=== PATIENT | female | born 1960 | race Asian ===

== ENCOUNTER 2016-12-14 07:23 | Outpatient (CLI) | payer BC ==
[2016-12-14 08:16] LABS: BASOPHILS % (AUTO) 0.7 % (0.0-2.0); EOSINOPHILS # (AUTO) 0.3 /CMM (0.0-0.7); EOSINOPHILS % (AUTO) 5.2 % (0.0-6.0); HEMATOCRIT 39 % (33-45); HEMOGLOBIN 12.8 g/dL (11.5-14.8); LYMPHOCYTES # (AUTO) 2.6 /CMM (0.8-4.8); LYMPHOCYTES % (AUTO) 48.5 % (20.0-44.0); MEAN CORPUSCULAR HEMOGLOBIN 30 PG (26.0-33.0); MEAN CORPUSCULAR HGB CONC 33 g/dl (31.0-36.0); MEAN CORPUSCULAR VOLUME 89 fL (82-100); MONOCYTES # (AUTO) 0.3 /CMM (0.1-1.30); MONOCYTES % (AUTO) 6.5 % (2.0-12.0); NEUTROPHILS # (AUTO) 2.1 /CMM (1.8-8.9); NEUTROPHILS % (AUTO) 39.1 % (43.0-81.0); PLATELET COUNT (AUTO) 282 /CMM (150-450); RDW COEFFICIENT OF VARIATION 12.7 (11.5-15.0); RED BLOOD CELL COUNT(AUTO) 4.33 MIL/uL (4.0-5.2); WHITE BLOOD COUNT (AUTO) 5.4 K/uL (4.3-11.0)
[2016-12-14 08:31] LABS: ALBUMIN 3.9 g/dL (3.4-5.0); BILIRUBIN,TOTAL 0.4 mg/dL (0.2-1.0); CALCIUM, SERUM 8.5 mg/dL (8.5-10.1); CREATININE 0.8 mg/dL (0.6-1.3); POTASSIUM 4.1 mmol/L (3.5-5.1); TOTAL PROTEIN, SERUM 7.7 g/dL (6.4-8.2)
[2016-12-14 08:40] LABS: FREE T4 (FREE THYROXINE) 0.92 ng/dL (0.76-1.46); THYROID STIMULATING HORMONE 1.66 uIU/mL (0.358-3.74)
== END 2016-12-14 23:59 | disposition home or self-care (01) ==
LOC: LAB 07:23
PROVIDERS: ATTEND Family Medicine
DX: Z00.01 Encounter for general adult medical examination with abnormal findings (principal)
CPT/HCPCS: 36415; 80053-TC; 80061-TC; 84439-TC; 84443-TC; 85025-TC

== ENCOUNTER 2020-01-08 19:39 | Emergency (ER) | payer BC, OTHER ==
[~2020-01-08] VITALS: Ht 152.4 cm; Wt 57.6 kg
[2020-01-08 19:39] VITALS: BP 171/82
== END 2020-01-08 20:25 | disposition home or self-care (01) ==
LOC: ER 19:48
DX: Z11.59 Encounter for screening for other viral diseases (principal); R03.0 Elevated blood-pressure reading, without diagnosis of hypertension
CPT/HCPCS: 99283; U0003

== ENCOUNTER 2020-02-11 15:51 | Emergency (ER) | payer OTHER ==
[~2020-02-11] VITALS: Ht 154.9 cm; Wt 71.2 kg
[2020-02-11 16:00] VITALS: BP 145/65
--- NOTE | 2020-02-11 16:49 | NUR ---
PT SWABBED FOR COVID19. D/C HOME IN STABLE CONDITION.
== END 2020-02-11 16:50 | disposition home or self-care (01) ==
LOC: ER 15:55
DX: Z03.818 Encounter for observation for suspected exposure to other biological agents ruled out (principal)
CPT/HCPCS: 99283; C9803; U0003

== ENCOUNTER 2020-02-19 14:44 | Emergency (ER) | payer OTHER ==
[~2020-02-19] VITALS: Ht 157.5 cm; Wt 57.6 kg
[2020-02-19 14:55] VITALS: BP 156/78
--- NOTE | 2020-02-19 15:20 | NUR ---
COVID SWAB OBTAINED AND SENT TO LAB.
--- NOTE | 2020-02-19 15:26 | NUR ---
Patient discharged to home in stable condition. Written and verbal after care instructions given. Patient verbalizes understanding of instruction.
== END 2020-02-19 15:27 | disposition home or self-care (01) ==
LOC: ER 14:45
DX: Z03.818 Encounter for observation for suspected exposure to other biological agents ruled out (principal)
CPT/HCPCS: 99283; C9803; U0003

== ENCOUNTER 2020-03-03 19:24 | Emergency (ER) | payer OTHER ==
[~2020-03-03] VITALS: Ht 152.4 cm; Wt 56.7 kg
--- NOTE | 2020-03-03 20:00 | NUR ---
COVID SWAB COLLECTED AND SENT TO LAB
== END 2020-03-03 20:01 | disposition home or self-care (01) ==
LOC: ER 19:29
DX: Z03.818 Encounter for observation for suspected exposure to other biological agents ruled out (principal)
CPT/HCPCS: 99283; C9803; U0003

== ENCOUNTER 2020-03-10 19:36 | Emergency (ER) | payer OTHER ==
[~2020-03-10] VITALS: Ht 154.9 cm; Wt 56.7 kg
[2020-03-10 19:42] VITALS: BP 122/65
--- NOTE | 2020-03-10 19:45 | NUR ---
CALLED FOR COVID TEST
--- NOTE | 2020-03-10 20:32 | NUR ---
covid swab done and sent to lab
--- NOTE | 2020-03-10 20:32 | NUR ---
Patient discharged to home in stable condition. Written and verbal after care instructions given. Patient verbalizes understanding of instruction. Pt ambulatory with a steady gait
== END 2020-03-10 20:32 | disposition home or self-care (01) ==
LOC: ER 19:40
DX: Z11.59 Encounter for screening for other viral diseases (principal)
CPT/HCPCS: 99283; C9803; U0003

== ENCOUNTER 2020-03-17 14:43 | Emergency (ER) | payer OTHER ==
[~2020-03-17] VITALS: Ht 154.9 cm; Wt 56.7 kg
[2020-03-17 14:54] VITALS: BP 144/75
--- NOTE | 2020-03-17 15:20 | NUR ---
COVID SWAB OBTAINED AND SENT TO LAB.
--- NOTE | 2020-03-17 15:27 | NUR ---
Patient discharged to home in stable condition. Written and verbal after care instructions given. Patient verbalizes understanding of instruction.
== END 2020-03-17 15:27 | disposition home or self-care (01) ==
LOC: ER 14:47
DX: Z11.59 Encounter for screening for other viral diseases (principal)
CPT/HCPCS: 99283; C9803; U0003

== ENCOUNTER 2020-03-25 15:33 | Emergency (ER) | payer OTHER ==
[~2020-03-25] VITALS: Ht 154.9 cm; Wt 56.7 kg
[2020-03-25 15:33] VITALS: BP 135/69
--- NOTE | 2020-03-25 16:10 | NUR ---
Patient discharged to home in stable condition. Written and verbal after care instructions given. Patient verbalizes understanding of instruction. Pt ambulatory with a steady gait
--- NOTE | 2020-03-25 16:10 | NUR ---
COVID SWAB DONE AND SENT TO LAB
== END 2020-03-25 16:11 | disposition home or self-care (01) ==
LOC: ER 15:35
DX: Z11.59 Encounter for screening for other viral diseases (principal)
CPT/HCPCS: 99283; C9803; U0003

== ENCOUNTER 2020-04-01 15:45 | Emergency (ER) | payer OTHER ==
[~2020-04-01] VITALS: Ht 154.9 cm; Wt 58.5 kg
[2020-04-01 15:59] VITALS: BP 162/83
== END 2020-04-01 16:32 | disposition home or self-care (01) ==
LOC: ER 15:46
DX: Z00.00 Encounter for general adult medical examination without abnormal findings (principal); Z20.828 Contact with and (suspected) exposure to other viral communicable diseases
CPT/HCPCS: 99283; C9803; U0003

== ENCOUNTER 2020-04-14 15:27 | Emergency (ER) | payer OTHER ==
[~2020-04-14] VITALS: Ht 152.4 cm; Wt 56.7 kg
[2020-04-14 15:33] VITALS: BP 132/70
--- NOTE | 2020-04-14 15:52 | NUR ---
COVID SWAB SENT
== END 2020-04-14 15:52 | disposition home or self-care (01) ==
LOC: ER 15:27
DX: Z20.828 Contact with and (suspected) exposure to other viral communicable diseases (principal)
CPT/HCPCS: 99283; C9803; U0003

== ENCOUNTER 2020-04-21 15:49 | Emergency (ER) | payer OTHER ==
[~2020-04-21] VITALS: Ht 152.4 cm; Wt 56.7 kg
[2020-04-21 16:02] VITALS: BP 133/65
--- NOTE | 2020-04-22 12:56 | NUR ---
Negative COVID PCR results
== END 2020-04-21 16:31 | disposition home or self-care (01) ==
LOC: ER 15:52
DX: Z20.828 Contact with and (suspected) exposure to other viral communicable diseases (principal)
CPT/HCPCS: 99283; C9803; U0003

== ENCOUNTER 2020-04-29 10:13 | Emergency (ER) | payer OTHER ==
[~2020-04-29] VITALS: Ht 157.5 cm; Wt 65.8 kg
[2020-04-29 10:32] VITALS: BP 145/75
--- NOTE | 2020-04-29 10:57 | NUR ---
COVID SWAB SENT.
--- NOTE | 2020-04-29 10:57 | NUR ---
PATIENT VERBALLY DISCHARGED, DON'T WANT TO WAIT FOR PAPERS.
== END 2020-04-29 10:58 | disposition home or self-care (01) ==
LOC: ER 10:14
DX: Z20.828 Contact with and (suspected) exposure to other viral communicable diseases (principal)
CPT/HCPCS: 99283; C9803; U0003

== ENCOUNTER 2020-05-12 09:57 | Outpatient (CLI) | payer BC ==
[2020-05-12 10:56] LABS: ALBUMIN 4.2 g/dL (3.4-5.0); BILIRUBIN,TOTAL 0.4 mg/dL (0.2-1.0); CREATININE 0.7 mg/dL (0.6-1.3); POTASSIUM 4.1 mmol/L (3.5-5.1); TOTAL PROTEIN, SERUM 8.3 g/dL (6.4-8.2)
[2020-05-12 10:57] LABS: BASOPHILS % (AUTO) 0.8 % (0.0-2.0); EOSINOPHILS % (AUTO) 1.4 % (0.0-6.0); HEMATOCRIT 40 % (33-45); HEMOGLOBIN 13.1 g/dL (11.5-14.8); LYMPHOCYTES # (AUTO) 2.2 /CMM (0.8-4.8); LYMPHOCYTES % (AUTO) 38.6 % (20.0-44.0); MEAN CORPUSCULAR HGB CONC 33 g/dl (31.0-36.0); MEAN CORPUSCULAR VOLUME 91 fL (82-100); MONOCYTES # (AUTO) 0.3 /CMM (0.1-1.30); MONOCYTES % (AUTO) 5.3 % (2.0-12.0); NEUTROPHILS # (AUTO) 3.1 /CMM (1.8-8.9); NEUTROPHILS % (AUTO) 53.9 % (43.0-81.0); PLATELET COUNT (AUTO) 287 /CMM (150-450); RED BLOOD CELL COUNT(AUTO) 4.41 MIL/uL (4.0-5.2); WHITE BLOOD COUNT (AUTO) 5.8 K/uL (4.3-11.0)
[2020-05-12 11:08] LABS: THYROID STIMULATING HORMONE 2.383 uIU/mL (0.358-3.74)
[2020-05-12 11:09] LABS: APPEARANCE,URINE CLEAR (CLEAR); BILIRUBIN,URINE NEGATIVE (NEGATIVE); BLOOD, URINE TRACE Ery/uL (NEGATIVE); COLOR,URINE YELLOW (YELLOW); KETONES,URINE NEGATIVE (NEGATIVE); LEUKOCYTE ESTERASE ,URINE NEGATIVE (NEGATIVE); NITRITE, URINE NEGATIVE (NEGATIVE); PH,URINE 6.5 (5.0-8.0); PROTEIN,URINE NEGATIVE (NEGATIVE); UGLUCOSE NEGATIVE (NEGATIVE); UROBILINOGEN,URINE 0.2 EU/dL (0.2)
[2020-05-12 12:49] LABS: RBC,URINE 0-2 /HPF (0-2); WBC,URINE NONE SEEN /HPF (0-3)
[2020-05-12 12:50] LABS: BACTERIA,URINE None seen /HPF (None Seen); SQUAMOUS EPITHELIAL CELL,UR Rare /HPF (None Seen)
== END 2020-05-12 23:59 | disposition home or self-care (01) ==
LOC: LAB 09:57
PROVIDERS: ATTEND Family Medicine
DX: E55.9 Vitamin D deficiency, unspecified (principal); Z11.59 Encounter for screening for other viral diseases
CPT/HCPCS: 36415; 80053-TC; 80061-TC; 81000-TC; 82306; 84439-TC; 84443-TC; 85025-TC

== ENCOUNTER 2020-05-13 10:34 | Emergency (ER) | payer BC, OTHER ==
[~2020-05-13] VITALS: Ht 154.9 cm; Wt 56.7 kg
[2020-05-13 10:41] VITALS: BP 132/79
--- NOTE | 2020-05-13 11:46 | NUR ---
COVID SWAB DONE AND SENT TO LAB
--- NOTE | 2020-05-13 11:47 | NUR ---
Patient discharged to home in stable condition. Written and verbal after care instructions given. Patient verbalizes understanding of instruction. Pt ambulatory with a steady gait
== END 2020-05-13 11:48 | disposition home or self-care (01) ==
LOC: ER 10:35
DX: Z20.828 Contact with and (suspected) exposure to other viral communicable diseases (principal)
CPT/HCPCS: 99283; C9803; U0003

== ENCOUNTER 2020-05-20 09:47 | Emergency (ER) | payer OTHER ==
[~2020-05-20] VITALS: Ht 154.9 cm; Wt 63.5 kg
[2020-05-20 09:57] VITALS: BP 130/62
--- NOTE | 2020-05-20 10:22 | NUR ---
SWABBED AND SENT TO LAB. VERBALLY DISCHARGED. NO ACI PROVIDED.
== END 2020-05-20 10:24 | disposition home or self-care (01) ==
LOC: ER 09:48
DX: Z20.828 Contact with and (suspected) exposure to other viral communicable diseases (principal)
CPT/HCPCS: 99283; C9803; U0003

== ENCOUNTER 2020-05-27 10:12 | Emergency (ER) | payer OTHER ==
[~2020-05-27] VITALS: Ht 167.6 cm; Wt 63.5 kg
[2020-05-27 10:12] VITALS: BP 148/69
== END 2020-05-27 11:00 | disposition home or self-care (01) ==
LOC: ER 10:14
DX: Z20.828 Contact with and (suspected) exposure to other viral communicable diseases (principal)
CPT/HCPCS: 99283; C9803; U0003

== ENCOUNTER 2020-06-02 15:50 | Emergency (ER) | payer OTHER ==
[~2020-06-02] VITALS: Ht 154.9 cm; Wt 58.1 kg
[2020-06-02 15:55] VITALS: BP 120/60
== END 2020-06-02 16:42 | disposition home or self-care (01) ==
LOC: ER 15:53
DX: Z20.828 Contact with and (suspected) exposure to other viral communicable diseases (principal)
CPT/HCPCS: 99283; C9803; U0003

== ENCOUNTER 2020-07-07 14:53 | Emergency (ER) | payer OTHER ==
[~2020-07-07] VITALS: Ht 152.4 cm; Wt 56.7 kg
[2020-07-07 15:00] VITALS: BP 120/81
== END 2020-07-07 15:38 | disposition home or self-care (01) ==
LOC: ER 14:54
DX: Z20.828 Contact with and (suspected) exposure to other viral communicable diseases (principal)
CPT/HCPCS: 99283; C9803; U0003

== ENCOUNTER 2020-07-22 07:44 | Emergency (ER) | payer OTHER ==
[~2020-07-22] VITALS: Ht 162.6 cm; Wt 63.5 kg
[2020-07-22 07:52] VITALS: BP 134/77
--- NOTE | 2020-07-22 08:28 | NUR ---
Patient discharged to home in stable condition. Written and verbal after care instructions given. Patient verbalizes understanding of instruction.
== END 2020-07-22 08:28 | disposition home or self-care (01) ==
LOC: ER 07:44
DX: Z20.828 Contact with and (suspected) exposure to other viral communicable diseases (principal)
CPT/HCPCS: 99283; C9803; U0003

== ENCOUNTER 2020-10-05 07:58 | Outpatient (CLI) | payer BC ==
[2020-10-05 09:30] LABS: BASOPHILS % (AUTO) 0.6 % (0.0-2.0); EOSINOPHILS % (AUTO) 2.2 % (0.0-6.0); HEMATOCRIT 40 % (33-45); HEMOGLOBIN 13.1 g/dL (11.5-14.8); LYMPHOCYTES # (AUTO) 2.5 /CMM (0.8-4.8); LYMPHOCYTES % (AUTO) 48.3 % (20.0-44.0); MEAN CORPUSCULAR HGB CONC 33 g/dl (31.0-36.0); MEAN CORPUSCULAR VOLUME 92 fL (82-100); MONOCYTES # (AUTO) 0.3 /CMM (0.1-1.30); MONOCYTES % (AUTO) 5.6 % (2.0-12.0); NEUTROPHILS # (AUTO) 2.3 /CMM (1.8-8.9); NEUTROPHILS % (AUTO) 43.3 % (43.0-81.0); PLATELET COUNT (AUTO) 276 /CMM (150-450); RED BLOOD CELL COUNT(AUTO) 4.31 MIL/uL (4.0-5.2); WHITE BLOOD COUNT (AUTO) 5.3 K/uL (4.3-11.0)
[2020-10-05 09:31] LABS: ALBUMIN 4.2 g/dL (3.4-5.0); BILIRUBIN,TOTAL 0.4 mg/dL (0.2-1.0); CALCIUM, SERUM 9.1 mg/dL (8.5-10.1); CREATININE 0.8 mg/dL (0.6-1.3); POTASSIUM 3.8 mmol/L (3.5-5.1); TOTAL PROTEIN, SERUM 8.2 g/dL (6.4-8.2)
[2020-10-05 09:35] LABS: THYROID STIMULATING HORMONE 1.342 uIU/mL (0.358-3.74)
[2020-10-05 09:41] LABS: BILIRUBIN,URINE NEGATIVE (NEGATIVE); COLOR,URINE YELLOW (YELLOW); LEUKOCYTE ESTERASE ,URINE NEGATIVE (NEGATIVE); NITRITE, URINE NEGATIVE (NEGATIVE); PROTEIN,URINE NEGATIVE (NEGATIVE); UGLUCOSE NEGATIVE (NEGATIVE); UROBILINOGEN,URINE 0.2 EU/dL (0.2)
[2020-10-05 09:51] LABS: BACTERIA,URINE Rare /HPF (None Seen); RBC,URINE 0-3 /HPF (0-2); SQUAMOUS EPITHELIAL CELL,UR Rare /HPF (None Seen); WBC,URINE 0-2 /HPF (0-3)
== END 2020-10-05 23:59 | disposition home or self-care (01) ==
LOC: LAB 07:58
PROVIDERS: ATTEND Family Medicine
DX: E78.2 Mixed hyperlipidemia (principal); E55.9 Vitamin D deficiency, unspecified; R31.9 Hematuria, unspecified; R73.9 Hyperglycemia, unspecified
CPT/HCPCS: 36415; 80053-TC; 80061-TC; 81001; 82306; 84439-TC; 84443-TC; 85025-TC